=== PATIENT | male | born 1960 | race Caucasian/White ===

== ENCOUNTER 2018-10-27 13:07 | Emergency (ER) | payer MEDICARE, OTHER ==
[~2018-10-27] VITALS: Ht 172.7 cm; Wt 114.9 kg
[~2018-10-27 13:07] MED LIST: ALBU8.5H8 IH; ASPI-1182 PO; BACL10TA PO; CARV6 PO; CLOP75TA17 PO; FAMO20 PO; FENT-76 TD; FURO20 PO; INSNOV SQ; KDUR10 PO; METF-960 PO; MIRALAX PO; PREG25 PO; QUET300T2 PO; RANO500T3 PO; SENN-176 PO; SENN8.6T90 PO; SIMV-260 PO; VITAD50000 PO
[2018-10-27 13:39] LABS: GLUCOSE,POINT OF CARE 356 MG/DL (70-110)
[2018-10-27] MEDS ORDERED: ACETAMINOPHEN 500 MG TABLET PO ONE (13:45)
[2018-10-27] MEDS ORDERED: SODIUM CHLORIDE 0.9% 1,000 ML IV ONE (13:45)
[2018-10-27] MEDS ORDERED: ONDANSETRON HCL 4 MG/2 ML VIAL IVP ONE (13:45)
[2018-10-27] MEDS ORDERED: INSULIN REGULAR, HUMAN 100 UNITS/ML IVP ONE (13:45)
[2018-10-27] MEDS ORDERED: UMEC1DIS IH (13:45)
[2018-10-27] MEDS ORDERED: MECLIZINE HCL 25 MG TABLET PO ONE (13:45)
[2018-10-27] MEDS ORDERED: CARV12 PO (13:50)
[2018-10-27] MEDS ORDERED: FENT1PAT TD (13:50)
[2018-10-27 14:20] LABS: BASOPHILS % (AUTO) 0.7 % (0.0-2.0); EOSINOPHILS % (AUTO) 1.2 % (1.0-6.0); HEMATOCRIT 43.6 % (41-53); HEMOGLOBIN 14.6 g/dL (13.5-17.5); LYMPHOCYTES # (AUTO) 2.4 K/uL (1.0-4.8); LYMPHOCYTES % (AUTO) 37.5 % (22.0-44.0); MEAN CORPUSCULAR HEMOGLOBIN 30.7 pg (26.0-34.0); MEAN CORPUSCULAR HGB CONC 33.5 G/dL (31.0-37.0); MEAN CORPUSCULAR VOLUME 92 fL (80-100); MONOCYTES # (AUTO) 0.6 K/uL (0.1-1.0); NEUTROPHILS # (AUTO) 3.3 K/uL (1.8-7.7); NEUTROPHILS % (AUTO) 50.6 % (40.0-70.0); PLATELET COUNT (AUTO) 142 K/uL (150-450); RED BLOOD CELL COUNT(AUTO) 4.75 MIL/uL (4.50-5.90); RED CELL DISTRIBUTION WIDTH 12.8 % (11.5-14.5)
[2018-10-27 14:32] LABS: ANION GAP 8 mmol/L (8-16); CARBON DIOXIDE 29 mmol/L (22-29); CHLORIDE 97 mmol/L (98-107); CREATININE 0.81 mg/dL (0.60-1.30); GLOMERULAR FILTR. RATE CALC > 60 mL/min (>60); GLUCOSE,RANDOM 336 mg/dL (70-110); POTASSIUM 4.3 mmol/L (3.5-5.1); SODIUM SERUM 134 mmol/L (136-145); UREA NITROGEN, BLOOD 16 mg/dL (7-18)
[2018-10-27 14:37] LABS: ALANINE AMINOTRANSFERASE 74 U/L (12-78); ALBUMIN 3.2 g/dL (3.4-5.0); ALKALINE PHOSPHATASE 55 U/L (46-116); ASPARTATE AMINOTRANSFERASE 30 U/L (15-37); BILIRUBIN,TOTAL 0.4 mg/dL (0.1-1.0); TOTAL PROTEIN, SERUM 7.6 g/dL (6.4-8.2)
[2018-10-27 15:09] LABS: GLUCOSE,POINT OF CARE 283 MG/DL (70-110)
[2018-10-27 16:33] VITALS: BP 142/82
== END 2018-10-27 17:26 | disposition home or self-care (01) ==
LOC: EMS 13:08
DX: E11.65 Type 2 diabetes mellitus with hyperglycemia (principal); R53.1 Weakness; R51 Headache; M54.2 Cervicalgia; I25.2 Old myocardial infarction; I11.9 Hypertensive heart disease without heart failure; I25.10 Atherosclerotic heart disease of native coronary artery without angina pectoris; G89.29 Other chronic pain; J44.9 Chronic obstructive pulmonary disease, unspecified; K21.9 Gastro-esophageal reflux disease without esophagitis; F20.9 Schizophrenia, unspecified; F17.210 Nicotine dependence, cigarettes, uncomplicated; Z88.6 Allergy status to analgesic agent; Z91.040 Latex allergy status; Z88.8 Allergy status to other drugs, medicaments and biological substances; Z79.82 Long term (current) use of aspirin; Z79.4 Long term (current) use of insulin; Z79.899 Other long term (current) drug therapy
CPT/HCPCS: 36415; 71045; 80053; 82962; 84484; 85025; 93005; 96374; 96375; 99285; J1815; J2405; J7030

== ENCOUNTER 2018-11-11 13:24 | Emergency (ER) | payer MEDICARE, MEDICAID ==
[~2018-11-11] VITALS: Ht 170.2 cm; Wt 113.2 kg
[~2018-11-11 13:24] MED LIST changes: +CARV12 PO; -CARV6 PO; -FENT-76 TD; +FENT1PAT TD; -SENN8.6T90 PO; +UMEC1DIS IH
[2018-11-11] MEDS ORDERED: CLOP75TA17 PO (14:24)
[2018-11-11] MEDS ORDERED: ATOR40TA28 PO (14:24)
[2018-11-11] MEDS ORDERED: INSU100I26 SQ ×2 (14:24)
[2018-11-11] MEDS ORDERED: QUET200T PO (14:24)
[2018-11-11] MEDS ORDERED: FURO20TA4 PO (14:24)
[2018-11-11] MEDS ORDERED: OMEP1CAP24 PO (14:24)
[2018-11-11] MEDS ORDERED: OMEP20 PO (14:28)
[2018-11-11] MEDS ORDERED: QUET300T2 PO (14:28)
[2018-11-11] MEDS ORDERED: SODIUM CHLORIDE 0.9% 1,000 ML IV ONE (14:30)
[2018-11-11 15:40] LABS: BASOPHILS % (AUTO) 0.4 % (0.0-2.0); EOSINOPHILS % (AUTO) 0.3 % (1.0-6.0); HEMATOCRIT 41.9 % (41-53); LYMPHOCYTES # (AUTO) 2.6 K/uL (1.0-4.8); LYMPHOCYTES % (AUTO) 17.2 % (22.0-44.0); MEAN CORPUSCULAR HEMOGLOBIN 30.8 pg (26.0-34.0); MEAN CORPUSCULAR HGB CONC 33.4 G/dL (31.0-37.0); MEAN CORPUSCULAR VOLUME 92 fL (80-100); MONOCYTES # (AUTO) 1.6 K/uL (0.1-1.0); MONOCYTES % (AUTO) 10.2 % (2.0-9.0); NEUTROPHILS # (AUTO) 10.9 K/uL (1.8-7.7); NEUTROPHILS % (AUTO) 71.9 % (40.0-70.0); PLATELET COUNT (AUTO) 135 K/uL (150-450); RED BLOOD CELL COUNT(AUTO) 4.54 MIL/uL (4.50-5.90); RED CELL DISTRIBUTION WIDTH 13.3 % (11.5-14.5)
[2018-11-11 15:47] LABS: PROTHROMBIN TIME 10.8 SEC (9.4-11.6)
[2018-11-11 16:04] LABS: B-TYPE NATRIURETIC PEPTIDE 14 pg/mL (0-100)
[2018-11-11 16:05] LABS: ANION GAP 10 mmol/L (8-16); CALCIUM, TOTAL 8.7 mg/dL (8.8-10.5); CARBON DIOXIDE 28 mmol/L (22-29); CHLORIDE 101 mmol/L (98-107); CREATININE 0.84 mg/dL (0.60-1.30); GLOMERULAR FILTR. RATE CALC > 60 mL/min (>60); GLUCOSE,RANDOM 272 mg/dL (70-110); POTASSIUM 4.6 mmol/L (3.5-5.1); SODIUM SERUM 139 mmol/L (136-145); UREA NITROGEN, BLOOD 20 mg/dL (7-18)
[2018-11-11 16:12] LABS: ALANINE AMINOTRANSFERASE 86 U/L (12-78); ALBUMIN 3.2 g/dL (3.4-5.0); ALKALINE PHOSPHATASE 54 U/L (46-116); ASPARTATE AMINOTRANSFERASE 31 U/L (15-37); BILIRUBIN,TOTAL 0.6 mg/dL (0.1-1.0); CREATINE KINASE, TOTAL ONLY 41 U/L (39-308); TOTAL PROTEIN, SERUM 7.2 g/dL (6.4-8.2)
[2018-11-11 16:59] LABS: INFLUENZA TYPE A NEGATIVE FOR TYPE A (NEGATIVE); INFLUENZA TYPE B NEGATIVE FOR TYPE B (NEGATIVE)
[2018-11-11 18:39] LABS: APPEARANCE,URINE CLEAR (CLEAR); BILIRUBIN,URINE NEGATIVE (NEGATIVE); GLUCOSE, URINE (UA) >=1000 mg/dL (NEGATIVE); KETONES,URINE NEGATIVE (NEGATIVE); LEUKOCYTE ESTERASE ,URINE NEGATIVE (NEGATIVE); NITRATE,URINE NEGATIVE (NEGATIVE); OCCULT BLOOD,URINE MODERATE (NEGATIVE); PROTEIN,URINE TRACE (NEGATIVE); UROBILINOGEN,URINE 0.2 mg/dL (<=1.0)
[2018-11-11 18:54] LABS: BACTERIA,URINE Rare /HPF (None Seen); SQUAMOUS EPITHELIAL CELL,UR Rare /LPF (None Seen); WBC,URINE 0-2 /HPF (0-5)
[2018-11-11] MEDS ORDERED: CefTRIAXone 1 GM/DEXTROSE 50 ML IV ONE (19:15)
[2018-11-11] MEDS ORDERED: HYDROCODONE/ACETAMINOPHEN 5-325 MG TABLET PO ONE (20:45)
[2018-11-11] MEDS ORDERED: BACLOFEN 10 MG TABLET PO ONE (20:45)
[2018-11-11 21:14] LABS: GLUCOSE,POINT OF CARE 224 MG/DL (70-110)
[2018-11-11 21:34] VITALS: BP 153/86
== END 2018-11-12 00:05 | disposition home or self-care (01) ==
LOC: EMS 13:24
DX: J40 Bronchitis, not specified as acute or chronic (principal); E11.9 Type 2 diabetes mellitus without complications; G89.29 Other chronic pain; I25.2 Old myocardial infarction; I25.10 Atherosclerotic heart disease of native coronary artery without angina pectoris; K21.9 Gastro-esophageal reflux disease without esophagitis; J44.9 Chronic obstructive pulmonary disease, unspecified; F17.210 Nicotine dependence, cigarettes, uncomplicated; F20.9 Schizophrenia, unspecified; Z79.899 Other long term (current) drug therapy; Z79.4 Long term (current) use of insulin; Z88.6 Allergy status to analgesic agent; Z91.040 Latex allergy status; Z88.8 Allergy status to other drugs, medicaments and biological substances; Z95.5 Presence of coronary angioplasty implant and graft
CPT/HCPCS: 36415; 70450; 71045; 80053; 81001; 82550; 82962; 83880; 84484; 85025; 85610; 85730; 87804; 93005; 96365; 99285; J0696; J7030

== ENCOUNTER 2018-11-12 06:03 | Emergency (ER) | payer MEDICARE, OTHER ==
[~2018-11-12] VITALS: Ht 170.2 cm; Wt 113.2 kg
[~2018-11-12 06:03] MED LIST changes: +ATOR40TA28 PO; -FURO20 PO; +FURO20TA4 PO; +INSU100I26 SQ; +OMEP20 PO; -SIMV-260 PO
[2018-11-12 06:24] LABS: GLUCOSE,POINT OF CARE 242 MG/DL (70-110)
[2018-11-12 06:49] LABS: ANION GAP 9 mmol/L (8-16); CALCIUM, TOTAL 8.9 mg/dL (8.8-10.5); CARBON DIOXIDE 29 mmol/L (22-29); CHLORIDE 100 mmol/L (98-107); CREATININE 0.69 mg/dL (0.60-1.30); GLOMERULAR FILTR. RATE CALC > 60 mL/min (>60); GLUCOSE,RANDOM 254 mg/dL (70-110); POTASSIUM 3.8 mmol/L (3.5-5.1); SODIUM SERUM 138 mmol/L (136-145); UREA NITROGEN, BLOOD 14 mg/dL (7-18)
[2018-11-12 06:52] LABS: BASOPHILS % (AUTO) 0.7 % (0.0-2.0); EOSINOPHILS % (AUTO) 0.6 % (1.0-6.0); LYMPHOCYTES # (AUTO) 2.4 K/uL (1.0-4.8); LYMPHOCYTES % (AUTO) 19.7 % (22.0-44.0); MEAN CORPUSCULAR HGB CONC 34.2 G/dL (31.0-37.0); MEAN CORPUSCULAR VOLUME 91 fL (80-100); MONOCYTES % (AUTO) 7.9 % (2.0-9.0); NEUTROPHILS # (AUTO) 8.5 K/uL (1.8-7.7); NEUTROPHILS % (AUTO) 71.1 % (40.0-70.0); PLATELET COUNT (AUTO) 135 K/uL (150-450); PROTHROMBIN TIME 10.8 SEC (9.4-11.6); RED BLOOD CELL COUNT(AUTO) 4.52 MIL/uL (4.50-5.90)
[2018-11-12 07:06] LABS: B-TYPE NATRIURETIC PEPTIDE 36 pg/mL (0-100)
[2018-11-12 07:15] LABS: ALANINE AMINOTRANSFERASE 86 U/L (12-78); ALBUMIN 3.2 g/dL (3.4-5.0); ALKALINE PHOSPHATASE 54 U/L (46-116); ASPARTATE AMINOTRANSFERASE 38 U/L (15-37); BILIRUBIN,TOTAL 0.6 mg/dL (0.1-1.0); CREATINE KINASE, TOTAL ONLY 90 U/L (39-308); TOTAL PROTEIN, SERUM 7.7 g/dL (6.4-8.2)
[2018-11-12] MEDS ORDERED: CARVEDILOL 3.125 MG TABLET PO ONE (07:15)
[2018-11-12] MEDS ORDERED: KETOROLAC TROMETHAMINE 30 MG/ML VIAL IVP ONE (07:15)
[2018-11-12] MEDS ORDERED: ONDANSETRON HCL 4 MG/2 ML VIAL IVP ONE (08:00)
[2018-11-12 08:19] LABS: GLUCOSE,POINT OF CARE 207 MG/DL (70-110)
[2018-11-12 12:45] VITALS: BP 147/87
== END 2018-11-12 13:00 | disposition home or self-care (01) ==
LOC: EMS 06:03
DX: J18.9 Pneumonia, unspecified organism (principal); R11.0 Nausea; J44.9 Chronic obstructive pulmonary disease, unspecified; E11.9 Type 2 diabetes mellitus without complications; K21.9 Gastro-esophageal reflux disease without esophagitis; I25.2 Old myocardial infarction; F20.9 Schizophrenia, unspecified; G89.29 Other chronic pain; F17.210 Nicotine dependence, cigarettes, uncomplicated; Z88.8 Allergy status to other drugs, medicaments and biological substances; Z91.040 Latex allergy status; Z91.011 Allergy to milk products; Z79.4 Long term (current) use of insulin; Z79.82 Long term (current) use of aspirin
CPT/HCPCS: 36415; 71045; 80053; 82550; 82962; 83880; 84484; 85025; 85610; 85730; 93005; 96374; 96375; 99285; J1885; J2405

== ENCOUNTER 2019-02-08 22:27 | Emergency (ER) | payer MEDICARE, OTHER ==
[~2019-02-08] VITALS: Ht 170.2 cm; Wt 109.1 kg
[~2019-02-08 22:27] MED LIST changes: -CLOP75TA17 PO; +CLOP75TA3 PO
[2019-02-08] MEDS ORDERED: INSNOV SQ (22:49)
[2019-02-08 22:59] LABS: GLUCOSE,POINT OF CARE 341 MG/DL (70-110)
[2019-02-08 23:02] LABS: BASOPHILS % (AUTO) 0.4 % (0.0-2.0); EOSINOPHILS % (AUTO) 1.6 % (1.0-6.0); HEMATOCRIT 44.2 % (41-53); HEMOGLOBIN 15.1 g/dL (13.5-17.5); LYMPHOCYTES # (AUTO) 2.6 K/uL (1.0-4.8); MEAN CORPUSCULAR HEMOGLOBIN 31.2 pg (26.0-34.0); MEAN CORPUSCULAR HGB CONC 34.2 G/dL (31.0-37.0); MEAN CORPUSCULAR VOLUME 91 fL (80-100); MONOCYTES # (AUTO) 0.6 K/uL (0.1-1.0); MONOCYTES % (AUTO) 11.2 % (2.0-9.0); NEUTROPHILS # (AUTO) 2.4 K/uL (1.8-7.7); NEUTROPHILS % (AUTO) 40.8 % (40.0-70.0); PLATELET COUNT (AUTO) 142 K/uL (150-450); RED BLOOD CELL COUNT(AUTO) 4.83 MIL/uL (4.50-5.90); RED CELL DISTRIBUTION WIDTH 13.3 % (11.5-14.5)
[2019-02-08 23:12] LABS: ANION GAP 9 mmol/L (8-16); CALCIUM, TOTAL 9.2 mg/dL (8.8-10.5); CARBON DIOXIDE 27 mmol/L (22-29); CHLORIDE 98 mmol/L (98-107); CREATININE 0.85 mg/dL (0.60-1.30); GLOMERULAR FILTR. RATE CALC > 60 mL/min (>60); GLUCOSE,RANDOM 357 mg/dL (70-110); SODIUM SERUM 134 mmol/L (136-145); UREA NITROGEN, BLOOD 15 mg/dL (7-18)
[2019-02-08 23:15] LABS: PROTHROMBIN TIME 10.2 SEC (9.4-11.6)
[2019-02-08 23:18] LABS: APPEARANCE,URINE CLEAR (CLEAR); BILIRUBIN,URINE NEGATIVE (NEGATIVE); GLUCOSE, URINE (UA) >=1000 mg/dL (NEGATIVE); KETONES,URINE NEGATIVE (NEGATIVE); LEUKOCYTE ESTERASE ,URINE NEGATIVE (NEGATIVE); NITRATE,URINE NEGATIVE (NEGATIVE); OCCULT BLOOD,URINE NEGATIVE (NEGATIVE); PH,URINE 5.5 (5.0-8.0); PROTEIN,URINE POS 1+ (NEGATIVE); UROBILINOGEN,URINE 0.2 mg/dL (<=1.0)
[2019-02-08 23:22] LABS: B-TYPE NATRIURETIC PEPTIDE 12 pg/mL (0-100)
[2019-02-08] MEDS ORDERED: HYDROCODONE/ACETAMINOPHEN 5-325 MG TABLET PO ONE (23:30)
[2019-02-08 23:35] LABS: BACTERIA,URINE None Seen /HPF (None Seen); RBC,URINE 0-2 /HPF (0-2); SQUAMOUS EPITHELIAL CELL,UR Few /LPF (None Seen); WBC,URINE 0-2 /HPF (0-5)
[2019-02-08 23:37] LABS: ALANINE AMINOTRANSFERASE 61 U/L (12-78); ALBUMIN 3.4 g/dL (3.4-5.0); ALKALINE PHOSPHATASE 60 U/L (46-116); ASPARTATE AMINOTRANSFERASE 22 U/L (15-37); BILIRUBIN,TOTAL 0.3 mg/dL (0.1-1.0); CREATINE KINASE, TOTAL ONLY 77 U/L (39-308)
[2019-02-09 01:59] VITALS: BP 124/84
== END 2019-02-09 02:33 | disposition home or self-care (01) ==
LOC: EMS 22:27
DX: R07.9 Chest pain, unspecified (principal); M54.12 Radiculopathy, cervical region; E11.9 Type 2 diabetes mellitus without complications; J44.9 Chronic obstructive pulmonary disease, unspecified; K21.9 Gastro-esophageal reflux disease without esophagitis; I25.2 Old myocardial infarction; F20.9 Schizophrenia, unspecified; F17.210 Nicotine dependence, cigarettes, uncomplicated; Z91.040 Latex allergy status; Z88.8 Allergy status to other drugs, medicaments and biological substances; Z79.84 Long term (current) use of oral hypoglycemic drugs; Z79.899 Other long term (current) drug therapy
CPT/HCPCS: 93005

== ENCOUNTER 2019-10-28 20:42 | Inpatient (IN) | payer MEDICARE, OTHER ==
[~2019-10-28] VITALS: Ht 170.2 cm; Wt 111.0 kg
[~2019-10-28 20:42] MED LIST changes: +ASPI-1111 PO; -ASPI-1182 PO; +CHOL500043 PO; -VITAD50000 PO
[2019-10-28] MEDS ORDERED: SODIUM CHLORIDE 0.9% 1,000 ML IV ONE (21:04)
[2019-10-28] MEDS ORDERED: ONDANSETRON HCL 4 MG/2 ML VIAL IVP ONE (21:15)
[2019-10-28] MEDS ORDERED: DIPH25 PO (21:34)
[2019-10-28] MEDS ORDERED: FENT1PAT28 TD (21:34)
[2019-10-28] MEDS ORDERED: HYDR-3289 PO (21:34)
[2019-10-28 21:57] LABS: APPEARANCE,URINE CLOUDY (CLEAR); BILIRUBIN,URINE NEGATIVE (NEGATIVE); GLUCOSE, URINE (UA) 100 mg/dL (NEGATIVE); KETONES,URINE NEGATIVE (NEGATIVE); LEUKOCYTE ESTERASE ,URINE SMALL (NEGATIVE); NITRATE,URINE NEGATIVE (NEGATIVE); OCCULT BLOOD,URINE SMALL (NEGATIVE); PH,URINE 5.5 (5.0-8.0); PROTEIN,URINE SEE CONFIRM (NEGATIVE); UROBILINOGEN,URINE 0.2 mg/dL (<=1.0)
[2019-10-28 22:03] LABS: AMPHET/METH SCREEN,URINE NEGATIVE (NEGATIVE); BARBITURATE SCREEN, URINE NEGATIVE (NEGATIVE); BENZODIAZEPINES SCREEN,URINE NEGATIVE (NEGATIVE); CANNABINOID SCREEN,URINE NEGATIVE (NEGATIVE); COCAINE SCREEN,URINE NEGATIVE (NEGATIVE); METHADONE SCREEN, URINE NEGATIVE (NEGATIVE); OPIATE SCREEN,URINE POSITIVE (NEGATIVE)
[2019-10-28 22:04] LABS: PHENCYCLIDINE SCREEN,URINE NEGATIVE (NEGATIVE)
[2019-10-28 22:08] LABS: BASOPHILS % (AUTO) 0.5 % (0.0-2.0); EOSINOPHILS % (AUTO) 0 % (1.0-6.0); HEMATOCRIT 31.9 % (41-53); HEMOGLOBIN 10.8 g/dL (13.5-17.5); LYMPHOCYTES # (AUTO) 2.6 K/uL (1.0-4.8); LYMPHOCYTES % (AUTO) 13.3 % (22.0-44.0); MEAN CORPUSCULAR HEMOGLOBIN 30.1 pg (26.0-34.0); MEAN CORPUSCULAR HGB CONC 33.9 G/dL (31.0-37.0); MEAN CORPUSCULAR VOLUME 89 fL (80-100); MONOCYTES # (AUTO) 2.1 K/uL (0.1-1.0); MONOCYTES % (AUTO) 10.8 % (2.0-9.0); NEUTROPHILS # (AUTO) 14.5 K/uL (1.8-7.7); NEUTROPHILS % (AUTO) 75.4 % (40.0-70.0); PLATELET COUNT (AUTO) 211 K/uL (150-450); RED BLOOD CELL COUNT(AUTO) 3.59 MIL/uL (4.50-5.90); RED CELL DISTRIBUTION WIDTH 14.3 % (11.5-14.5)
[2019-10-28 22:12] LABS: BACTERIA,URINE Few /HPF (None Seen); SQUAMOUS EPITHELIAL CELL,UR Few /LPF (None Seen); SULFOSALICYLIC ACID,URINE 3+ (Negative); WBC,URINE 26-50 /HPF (0-5)
[2019-10-28 22:20] LABS: ANION GAP 5 mmol/L (8-16); CARBON DIOXIDE 30 mmol/L (22-29); CHLORIDE 95 mmol/L (98-107); CREATININE 0.87 mg/dL (0.60-1.30); GLOMERULAR FILTR. RATE CALC > 60 mL/min (>60); GLUCOSE,RANDOM 241 mg/dL (70-110); POTASSIUM 4.3 mmol/L (3.5-5.1); SODIUM SERUM 130 mmol/L (136-145); UREA NITROGEN, BLOOD 23 mg/dL (7-18)
[2019-10-28 22:27] LABS: ALANINE AMINOTRANSFERASE 44 U/L (12-78); ALBUMIN 2.3 g/dL (3.4-5.0); ALKALINE PHOSPHATASE 72 U/L (46-116); ASPARTATE AMINOTRANSFERASE 27 U/L (15-37); BILIRUBIN,TOTAL 0.7 mg/dL (0.1-1.0); LIPASE 33 U/L (73-393); TOTAL PROTEIN, SERUM 7.5 g/dL (6.4-8.2)
[2019-10-28] MEDS ORDERED: CefTRIAXone 1 GM/DEXTROSE 50 ML IV ONE (23:30)
[2019-10-28] MEDS ORDERED: MetroNIDAZOLE 500 MG/NACL 100 ML IV ONE (23:30)
[2019-10-28] MEDS ORDERED: IOVERSOL 350 MG/ML 150 ML VIAL ONE (23:34)
[2019-10-28] MEDS ORDERED: SODIUM CHLORIDE 0.9% 100 ML ONE (23:34)
[2019-10-29] MEDS ORDERED: 0.9% SODIUM CHLORIDE 10 ML SYRINGE IVP PRN ×2 (02:45→06:45)
[2019-10-29] MEDS ORDERED: ACETAMINOPHEN 325 MG TABLET PO PRN (02:45)
[2019-10-29] MEDS ORDERED: ONDANSETRON HCL 4 MG/2 ML VIAL IVP PRN ×2 (02:45→06:45)
[2019-10-29 03:55] LABS: GLUCOSE,POINT OF CARE 234 MG/DL (70-110)
[2019-10-29] MEDS ORDERED: MORPHINE SULFATE 4 MG/ML SYRINGE ONE (03:57)
[2019-10-29] MEDS ORDERED: MORPHINE SULFATE 4 MG/ML SYRINGE IVP ONE (04:00)
[2019-10-29] MEDS ORDERED: MAGNESIUM SULFATE 2 GM, MVI, ADULT NO.1 WITH VIT K 10 ML, THIAMINE HCL 100 MG, FOLIC AC... IV ONE ×5 (04:30)
[2019-10-29 04:37] VITALS: BP 144/71
[2019-10-29] MEDS ORDERED: POTASSIUM CHL 10 MEQ/WATER 50 ML IV PRN (06:45)
[2019-10-29] MEDS ORDERED: MAGNESIUM SULFATE 2 GM/WATER 50 ML IV PRN (06:45)
[2019-10-29] MEDS ORDERED: DEXTROSE 50%-WATER 25 GM/50 ML SYRINGE IVP PRN (06:45)
[2019-10-29] MEDS ORDERED: POTASSIUM CHLORIDE 20 MEQ ER TABLET PO PRN (06:45)
[2019-10-29] MEDS ORDERED: DiphenhydrAMINE HCL 25 MG CAPSULE PO PRN (06:45)
[2019-10-29] MEDS ORDERED: MAGNESIUM OXIDE 400 MG TABLET PO PRN (06:45)
[2019-10-29] MEDS ORDERED: MAGNESIUM SULFATE 4 GM/WATER 100 ML IV PRN (06:45)
[2019-10-29] MEDS ORDERED: ZOLPIDEM TARTRATE 5 MG TABLET PO PRN (06:45)
[2019-10-29 07:47] VITALS: BP 147/77
[2019-10-29 08:29] LABS: MAGNESIUM 2.1 mg/dL (1.80-2.40)
[2019-10-29] MEDS ORDERED: CHOLECALCIFEROL (VIT D3) 50,000 UNITS CAPSULE PO SCH (09:00)
[2019-10-29] MEDS: FAMOTIDINE 20 MG TABLET PO SCH ×2 (09:02→20:44)
[2019-10-29] MEDS: SENNA 187 MG TABLET PO SCH (09:02)
[2019-10-29] MEDS: CLOPIDOGREL BISULFATE 75 MG TABLET PO SCH (09:02)
[2019-10-29] MEDS: RANOLAZINE 500 MG ER TABLET PO SCH ×2 (09:02→20:44)
[2019-10-29] MEDS: FUROSEMIDE 20 MG TABLET PO SCH (09:03)
[2019-10-29] MEDS: BACLOFEN 10 MG TABLET PO SCH ×2 (09:03→20:44)
[2019-10-29] MEDS: POTASSIUM CHLORIDE 10 MEQ ER TABLET PO SCH (09:03)
[2019-10-29] MEDS: CARVEDILOL 12.5 MG TABLET PO SCH ×2 (09:03→20:44)
[2019-10-29] MEDS: ASPIRIN 81 MG EC TABLET PO SCH (09:03)
[2019-10-29] MEDS: ATORVASTATIN CALCIUM 40 MG TABLET PO SCH (09:04)
[2019-10-29] MEDS: MetFORMIN HCL 500 MG TABLET PO SCH ×2 (09:04→17:38)
[2019-10-29 11:21] VITALS: BP 135/83
[2019-10-29] MEDS: PREGABALIN 25 MG CAPSULE PO SCH ×2 (11:42→20:44)
[2019-10-29] MEDS: FENTANYL TD SCH (11:42)
[2019-10-29] MEDS: HYDROCODONE/ACETAMINOPHEN 10-325 MG TABLET PO PRN ×2 (14:17→20:45)
[2019-10-29 15:00] VITALS: BP 142/74
[2019-10-29 16:34] LABS: GLUCOMETER DEV NAME(LOC) 6N.2; GLUCOSE,POINT OF CARE 318 MG/DL (70-110)
[2019-10-29] MEDS: INSULIN LISPRO 100 UNITS/ML SQ PRN ×2 (16:41→20:59)
[2019-10-29 19:40] VITALS: BP 159/86
[2019-10-29] MEDS: QUEtiapine FUMARATE 300 MG TABLET PO SCH (20:45)
[2019-10-29 21:39] LABS: GLUCOMETER DEV NAME(LOC) 6N.2; GLUCOSE,POINT OF CARE 315 MG/DL (70-110)
[2019-10-29] MEDS: CefTRIAXone 1 GM/DEXTROSE 50 ML IV SCH (22:04)
[2019-10-29] MEDS: SODIUM CHLORIDE 0.9% 1,000 ML IV SCH (22:06)
[2019-10-29 23:30] VITALS: BP 160/79
[2019-10-30 03:30] VITALS: BP 143/76
[2019-10-30] MEDS: INSULIN LISPRO 100 UNITS/ML SQ PRN ×4 (06:35→20:58)
[2019-10-30 07:01] LABS: GLUCOMETER DEV NAME(LOC) 6N.2; GLUCOSE,POINT OF CARE 292 MG/DL (70-110)
[2019-10-30 07:25] VITALS: BP 153/84
[2019-10-30 07:46] LABS: BASOPHILS % (AUTO) 0.4 % (0.0-2.0); HEMATOCRIT 30.7 % (41-53); HEMOGLOBIN 10.5 g/dL (13.5-17.5); LYMPHOCYTES # (AUTO) 1.7 K/uL (1.0-4.8); LYMPHOCYTES % (AUTO) 20.8 % (22.0-44.0); MEAN CORPUSCULAR HEMOGLOBIN 30.7 pg (26.0-34.0); MEAN CORPUSCULAR HGB CONC 34.3 G/dL (31.0-37.0); MEAN CORPUSCULAR VOLUME 89 fL (80-100); MONOCYTES # (AUTO) 1.5 K/uL (0.1-1.0); MONOCYTES % (AUTO) 17.4 % (2.0-9.0); NEUTROPHILS % (AUTO) 60.4 % (40.0-70.0); PLATELET COUNT (AUTO) 197 K/uL (150-450); RED BLOOD CELL COUNT(AUTO) 3.43 MIL/uL (4.50-5.90)
[2019-10-30 07:49] LABS: ANION GAP 5 mmol/L (8-16); CALCIUM, TOTAL 8.3 mg/dL (8.8-10.5); CARBON DIOXIDE 30 mmol/L (22-29); CHLORIDE 99 mmol/L (98-107); CREATININE 0.85 mg/dL (0.60-1.30); GLOMERULAR FILTR. RATE CALC > 60 mL/min (>60); GLUCOSE,RANDOM 309 mg/dL (70-110); POTASSIUM 4.5 mmol/L (3.5-5.1); SODIUM SERUM 134 mmol/L (136-145); UREA NITROGEN, BLOOD 16 mg/dL (7-18)
[2019-10-30] MEDS: FUROSEMIDE 20 MG TABLET PO SCH (08:36)
[2019-10-30] MEDS: ATORVASTATIN CALCIUM 40 MG TABLET PO SCH (08:36)
[2019-10-30] MEDS: RANOLAZINE 500 MG ER TABLET PO SCH ×2 (08:36→20:31)
[2019-10-30] MEDS: CARVEDILOL 12.5 MG TABLET PO SCH ×2 (08:36→20:31)
[2019-10-30] MEDS: POTASSIUM CHLORIDE 10 MEQ ER TABLET PO SCH (08:36)
[2019-10-30] MEDS: ASPIRIN 81 MG EC TABLET PO SCH (08:36)
[2019-10-30] MEDS: BACLOFEN 10 MG TABLET PO SCH ×2 (08:36→20:32)
[2019-10-30] MEDS: MetFORMIN HCL 500 MG TABLET PO SCH ×2 (08:36→17:23)
[2019-10-30] MEDS: FAMOTIDINE 20 MG TABLET PO SCH ×2 (08:36→20:31)
[2019-10-30] MEDS: CLOPIDOGREL BISULFATE 75 MG TABLET PO SCH (08:36)
[2019-10-30] MEDS: SENNA 187 MG TABLET PO SCH (08:40)
[2019-10-30] MEDS: PREGABALIN 25 MG CAPSULE PO SCH ×2 (08:40→20:31)
[2019-10-30 11:06] VITALS: BP 146/87
[2019-10-30] MEDS ORDERED: ALBUTEROL SULFATE HFA 90 MCG/PUFF 8 GM INHALER IH PRN (11:15)
[2019-10-30] MEDS ORDERED: AMPI500C68 PO (12:18)
[2019-10-30 13:22] LABS: GLUCOMETER DEV NAME(LOC) 6N.2; GLUCOSE,POINT OF CARE 362 MG/DL (70-110)
[2019-10-30 15:21] VITALS: BP 146/81
[2019-10-30] MEDS: SODIUM CHLORIDE 0.9% 1,000 ML IV SCH (16:05)
[2019-10-30] MEDS: HYDROCODONE/ACETAMINOPHEN 10-325 MG TABLET PO PRN ×2 (17:27→22:14)
[2019-10-30 17:58] LABS: GLUCOMETER DEV NAME(LOC) 6N.2; GLUCOSE,POINT OF CARE 382 MG/DL (70-110)
[2019-10-30 20:00] VITALS: BP 161/86
[2019-10-30] MEDS: QUEtiapine FUMARATE 300 MG TABLET PO SCH ×2 (20:32→20:51)
[2019-10-30 21:30] LABS: GLUCOMETER DEV NAME(LOC) 6N.2; GLUCOSE,POINT OF CARE 351 MG/DL (70-110)
[2019-10-30] MEDS: CefTRIAXone 1 GM/DEXTROSE 50 ML IV SCH (22:17)
[2019-10-30 23:38] VITALS: BP 155/85
[2019-10-31] MEDS: HYDROCODONE/ACETAMINOPHEN 10-325 MG TABLET PO PRN ×4 (04:47→20:26)
[2019-10-31 04:50] VITALS: BP 163/90
[2019-10-31] MEDS: INSULIN LISPRO 100 UNITS/ML SQ PRN ×4 (05:42→20:53)
[2019-10-31 06:39] LABS: GLUCOMETER DEV NAME(LOC) 6N.2; GLUCOSE,POINT OF CARE 318 MG/DL (70-110)
[2019-10-31 08:19] VITALS: BP 165/91
[2019-10-31] MEDS: RANOLAZINE 500 MG ER TABLET PO SCH ×2 (08:44→20:32)
[2019-10-31] MEDS: FAMOTIDINE 20 MG TABLET PO SCH ×2 (08:46→20:32)
[2019-10-31] MEDS: SENNA 187 MG TABLET PO SCH (08:46)
[2019-10-31] MEDS: ASPIRIN 81 MG EC TABLET PO SCH (08:46)
[2019-10-31] MEDS: PREGABALIN 25 MG CAPSULE PO SCH ×2 (08:46→20:32)
[2019-10-31] MEDS: FUROSEMIDE 20 MG TABLET PO SCH (08:47)
[2019-10-31] MEDS: CARVEDILOL 12.5 MG TABLET PO SCH ×2 (08:47→20:32)
[2019-10-31] MEDS: ATORVASTATIN CALCIUM 40 MG TABLET PO SCH (08:47)
[2019-10-31] MEDS: BACLOFEN 10 MG TABLET PO SCH ×2 (08:48→20:33)
[2019-10-31] MEDS: MetFORMIN HCL 500 MG TABLET PO SCH ×2 (08:48→17:32)
[2019-10-31] MEDS: POTASSIUM CHLORIDE 10 MEQ ER TABLET PO SCH (08:48)
[2019-10-31] MEDS: CLOPIDOGREL BISULFATE 75 MG TABLET PO SCH (08:48)
[2019-10-31] MEDS ORDERED: DEXTROSE 50%-WATER 25 GM/50 ML SYRINGE IVP PRN (11:45)
[2019-10-31 11:47] VITALS: BP 154/80
[2019-10-31 12:02] LABS: GLUCOMETER DEV NAME(LOC) 6N.2; GLUCOSE,POINT OF CARE 403 MG/DL (70-110)
[2019-10-31] MEDS: AmLODIPine BESYLATE 5 MG TABLET PO SCH (13:27)
[2019-10-31 16:29] VITALS: BP 160/85
[2019-10-31 19:25] LABS: GLUCOMETER DEV NAME(LOC) 6N.2; GLUCOSE,POINT OF CARE 371 MG/DL (70-110)
[2019-10-31] MEDS: INSULIN GLARGINE,HUM.REC.ANLOG 100 UNITS/ML SQ SCH (20:55)
[2019-10-31] MEDS: QUEtiapine FUMARATE 300 MG TABLET PO SCH (20:57)
[2019-10-31 21:31] VITALS: BP 150/90
[2019-10-31] MEDS: CefTRIAXone 1 GM/DEXTROSE 50 ML IV SCH (22:43)
[2019-10-31 23:49] LABS: GLUCOMETER DEV NAME(LOC) 6N.2; GLUCOSE,POINT OF CARE 342 MG/DL (70-110)
[2019-11-01] MEDS: HYDROCODONE/ACETAMINOPHEN 10-325 MG TABLET PO PRN ×2 (03:28→08:45)
[2019-11-01] MEDS: INSULIN LISPRO 100 UNITS/ML SQ PRN ×2 (05:21→12:23)
[2019-11-01 05:27] LABS: GLUCOMETER DEV NAME(LOC) 6N.2; GLUCOSE,POINT OF CARE 394 MG/DL (70-110)
[2019-11-01 05:29] VITALS: BP 147/88
[2019-11-01 07:37] VITALS: BP 174/85
[2019-11-01] MEDS: PREGABALIN 25 MG CAPSULE PO SCH (08:30)
[2019-11-01] MEDS: ASPIRIN 81 MG EC TABLET PO SCH (08:30)
[2019-11-01] MEDS: FAMOTIDINE 20 MG TABLET PO SCH (08:30)
[2019-11-01] MEDS: CARVEDILOL 12.5 MG TABLET PO SCH (08:30)
[2019-11-01] MEDS: AmLODIPine BESYLATE 5 MG TABLET PO SCH (08:30)
[2019-11-01] MEDS: POTASSIUM CHLORIDE 10 MEQ ER TABLET PO SCH (08:30)
[2019-11-01] MEDS: ATORVASTATIN CALCIUM 40 MG TABLET PO SCH (08:30)
[2019-11-01] MEDS: CLOPIDOGREL BISULFATE 75 MG TABLET PO SCH (08:30)
[2019-11-01] MEDS: MetFORMIN HCL 500 MG TABLET PO SCH (08:30)
[2019-11-01] MEDS: FUROSEMIDE 20 MG TABLET PO SCH (08:31)
[2019-11-01] MEDS: BACLOFEN 10 MG TABLET PO SCH (08:31)
[2019-11-01] MEDS: SENNA 187 MG TABLET PO SCH (08:31)
[2019-11-01] MEDS: RANOLAZINE 500 MG ER TABLET PO SCH (08:32)
[2019-11-01] MEDS: FENTANYL TD SCH (08:33)
[2019-11-01] MEDS: INSULIN GLARGINE,HUM.REC.ANLOG 100 UNITS/ML SQ SCH (08:43)
[2019-11-01] MEDS: SODIUM CHLORIDE 0.9% 1,000 ML IV SCH (08:51)
[2019-11-01 11:30] VITALS: BP 152/86
[2019-11-01] MEDS ORDERED: CIPR-278 PO (16:27)
[2019-11-01 17:57] LABS: GLUCOMETER DEV NAME(LOC) 6N.2; GLUCOSE,POINT OF CARE 334 MG/DL (70-110)
[2019-11-01] MEDS ORDERED: CIPROFLOXACIN HCL 500 MG TABLET PO SCH (21:00)
== END 2019-11-01 16:07 | disposition home or self-care (01) | DRG 690 ==
LOC: EMS 20:43 → 6N 10-29 03:12
PROVIDERS: ADMIT Internal Medicine; ATTEND Internal Medicine
DX: N10 Acute pyelonephritis (principal); R65.10 Systemic inflammatory response syndrome (SIRS) of non-infectious origin without acute organ dysfunction; E11.9 Type 2 diabetes mellitus without complications; E66.01 Morbid (severe) obesity due to excess calories; F20.9 Schizophrenia, unspecified; J44.9 Chronic obstructive pulmonary disease, unspecified; B96.20 Unspecified Escherichia coli [E. coli] as the cause of diseases classified elsewhere; I25.10 Atherosclerotic heart disease of native coronary artery without angina pectoris; I10 Essential (primary) hypertension; K21.9 Gastro-esophageal reflux disease without esophagitis; K59.00 Constipation, unspecified; F29 Unspecified psychosis not due to a substance or known physiological condition; R16.2 Hepatomegaly with splenomegaly, not elsewhere classified; Z87.891 Personal history of nicotine dependence; Z91.19 Patient's noncompliance with other medical treatment and regimen; Z87.440 Personal history of urinary (tract) infections; I25.2 Old myocardial infarction; Z82.49 Family history of ischemic heart disease and other diseases of the circulatory system; Z88.8 Allergy status to other drugs, medicaments and biological substances; Z91.040 Latex allergy status; Z79.899 Other long term (current) drug therapy; Z95.5 Presence of coronary angioplasty implant and graft; Z68.38 Body mass index [BMI] 38.0-38.9, adult
CPT/HCPCS: 74177; 83605; 83735; 87040; 87086; 87205; 93005; J0696; J1815; J2270; J2405; J3411; J3475; J3490; J3535; J7030; J7050